=== PATIENT | male | born 1985 | race Caucasian/White ===

== ENCOUNTER 2017-07-06 19:26 | Inpatient (IN) | payer OTHER ==
--- NOTE | 2017-07-06 20:15 | ER Document Report ---
ED Medical Screen (RME) - General Chief Complaint: Abdominal Pain Stated Complaint: VOMITING AND ABDOMINAL PAIN Time Seen by Provider: 07/06/17 20:14 TRAVEL OUTSIDE OF THE [place] IN LAST 30 DAYS: No - HPI Notes: 07/06/17 20:15 Patient just discharged for SBO. Patient states vomited not passing any gas - Related Data Allergies/Adverse Reactions: No Known Allergies Allergy (Verified 07/06/17 19:26) Past Medical History Renal/ Medical History: Denies: Hx Peritoneal Dialysis Musculoskeltal Medical History: Reports Hx Musculoskeletal Trauma Psychiatric Medical History: Reports: Hx Bipolar Disorder, Hx Depression Traumatic Medical History: Reports: Hx Fractures - foot, Past Surgical History: Reports: Hx Cholecystectomy - Immunizations Immunizations up to date: Yes Hx Diphtheria, Pertussis, Tetanus Vaccination: Yes - 2010 History of Influenza Vaccine for 01/2017 - 06/2017 Season: Refused Review of Systems - Review of Systems Gastrointestinal: Nausea, Vomiting -: Yes All other systems reviewed and negative Physical Exam - Vital signs Vitals: Temp Pulse Resp BP Pulse Ox 98.2 F 100 17 127/80 H 98 07/06/17 19:30 07/06/17 19:30 07/06/17 19:30 07/06/17 19:30 07/06/17 19:30 - Abdominal Distension: No distension Tenderness: Nontender Course - Vital Signs Vital signs: Temp Pulse Resp BP Pulse Ox 98.2 F 100 17 127/80 H 98 07/06/17 19:30 07/06/17 19:30 07/06/17 19:30 07/06/17 19:30 07/06/17 19:30
--- NOTE | 2017-07-06 20:47 | RADIOLOGY REPORT (SQ) ---
EXAM DESCRIPTION: ACUTE ABDOMEN SERIES COMPLETED DATE/TIME: 07/06/2017 8:36 pm REASON FOR STUDY: eval sbo COMPARISON: 07/04/2017 and 07/03/2017 NUMBER OF VIEWS: Three views. TECHNIQUE: Frontal chest, supine abdomen and upright/decubitus abdomen radiographic images acquired. LIMITATIONS: None. FINDINGS: CHEST: Lungs clear of infiltrates. FREE AIR: None. No abnormal gas collections. BOWEL GAS PATTERN: Recurrence of multiple dilated loops of small bowel demonstrating air-fluid levels , similar to that seen on 07/03/2017 CT imaging. CALCIFICATIONS: No suspicious calcifications. HARDWARE: None in the abdomen. SOFT TISSUES: No gross mass or suggestion of organomegaly. BONES: No acute fracture. No worrisome bone lesions. OTHER: No other significant finding. IMPRESSION: Short interval recurrence of multiple dilated loops of small bowel demonstrating air-flu id levels. This is similar to that seen on comparison CT imaging performed 07/03/2017 which demonstra preethi congenital malrotation. Recommend surgical consultation. TECHNICAL DOCUMENTATION: JOB ID: [id number] [employer]- All Rights Reserved Reading location - IP/workstation name: [email or web address]
[2017-07-06] MEDS ORDERED: NORMAL SALINE 1000 ML 1,000 ML IV ONE (22:11)
[2017-07-06] MEDS ORDERED: ONDANSETRON HCL INJ/PF 4 MG/2 ML SDV IV ONE (22:15)
[2017-07-06] MEDS ORDERED: HYDROMORPHONE HCL INJ/PF 2 MG/ML AMPULE IV ONE (22:15)
[2017-07-06] MEDS ORDERED: FAMOTIDINE INJ/PF 20 MG/2 ML SDV IV ONE (22:15)
[2017-07-06] MEDS ORDERED: LIDOCAINE 2% JELLY 5 ML TUBE TOP ONE (22:15)
--- NOTE | 2017-07-06 22:22 | ER Document Report ---
ED General - General Chief Complaint: Abdominal Pain Stated Complaint: VOMITING AND ABDOMINAL PAIN Time Seen by Provider: 07/06/17 20:14 Mode of Arrival: Ambulatory Information source: Patient TRAVEL OUTSIDE OF THE [place] IN LAST 30 DAYS: No - HPI Notes: Patient is a 31-year-old male just discharged out of the hospital earlier this morning with a small bowel obstruction presents with report of nausea and vomiting 3 with no flatus and report of additional small bowel obstructive symptoms. The patient is status post open cholecystectomy 2012 with history of congenital malrotation and previous pancreatitis. He has not drank since he was discharged but had drank some alcohol prior to previous admission on . Patient had CT scan then that showed small bowel obstruction. Patient states he initially had been recommended for surgical intervention for exploratory laparotomy and lysis of adhesions, but cleared up and was discharged earlier this morning. Patient denies any fever or hematemesis or dysuria. The patient states he had one very small bowel movement earlier this morning. - Related Data Allergies/Adverse Reactions: No Known Allergies Allergy (Verified 07/06/17 19:26) Past Medical History - General Information source: Patient - Social History Smoking Status: Former Smoker Chew tobacco use (# tins/day): No Frequency of alcohol use: Occasional Drug Abuse: None Lives with: Family Family History: Arthritis, Hypertension. denies: CAD, CVA, DM, Hyperlipidemia, Malignancy, Thyroid Disfunction Patient has suicidal ideation: No Patient has homicidal ideation: No Renal/ Medical History: Denies: Hx Peritoneal Dialysis Musculoskeltal Medical History: Reports Hx Musculoskeletal Trauma Psychiatric Medical History: Reports: Hx Bipolar Disorder, Hx Depression Traumatic Medical History: Reports: Hx Fractures - foot, Past Surgical History: Reports: Hx Cholecystectomy - Immunizations Immunizations up to date: Yes Hx Diphtheria, Pertussis, Tetanus Vaccination: Yes - 2010 Review of Systems - Review of Systems Notes: REVIEW OF SYSTEMS: CONSTITUTIONAL : Denies fever, chills, or sweats. EENT: Denies eye, ear, throat, or mouth pain or symptoms. Denies nasal or sinus congestion or discharge. Denies throat, tongue, or mouth swelling or difficulty swallowing. CARDIOVASCULAR: Denies chest pain. Denies palpitations or racing or irregular heart beat. Denies ankle edema. RESPIRATORY: Denies cough, cold, or chest congestion. Denies shortness of breath, difficulty breathing, or wheezing. GASTROINTESTINAL: Denies diarrhea. Denies blood in vomitus, stools, or per rectum. Denies black, tarry stools. Denies constipation. GENITOURINARY: Denies difficulty urinating, painful urination, burning, frequency, blood in urine, or discharge. MUSCULOSKELETAL: Denies back or neck pain or stiffness. Denies joint pain or swelling. SKIN: Denies rash, lesions or sores. HEMATOLOGIC : Denies easy bruising or bleeding. LYMPHATIC: Denies swollen, enlarged glands. NEUROLOGICAL: Denies confusion or altered mental status. Denies passing out or loss of consciousness. Denies dizziness or lightheadedness. Denies headache. Denies weakness or paralysis or loss of use of either side. Denies problems with gait or speech. Denies sensory loss, numbness, or tingling. Denies seizures. PSYCHIATRIC: Denies anxiety or stress. Denies depression, suicidal ideation, or homicidal ideation. ALL OTHER SYSTEMS REVIEWED AND NEGATIVE. Dictation was performed using [employer] voice recognition software Physical Exam - Vital signs Vitals: Temp Pulse Resp BP Pulse Ox 98.2 F 100 17 127/80 H 98 07/06/17 19:30 07/06/17 19:30 07/06/17 19:30 07/06/17 19:30 07/06/17 19:30 - Notes Notes: PHYSICAL EXAMINATION: GENERAL: Well-appearing, well-nourished and in moderate discomfort. HEAD: Atraumatic, normocephalic. EYES: Pupils equal round and reactive to light, extraocular movements intact, sclera anicteric, conjunctiva are normal. ENT: Nares patent, oropharynx clear without exudates. Moist mucous membranes. NECK: Normal range of motion, supple without lymphadenopathy LUNGS: Breath sounds clear to auscultation bilaterally and equal. No wheezes rales or rhonchi. HEART: Regular rate and rhythm without murmurs ABDOMEN: diffusely tender worse through the upper abdomen with mildly distended abdomen. No guarding, no rebound. No masses appreciated. Minimal scant bowel sounds. Musculoskeletal: Normal range of motion, no pitting or edema. No cyanosis. No CVA discomfort. NEUROLOGICAL: Cranial nerves grossly intact. Normal speech, normal gait. Normal sensory, motor exams PSYCH: Normal mood, normal affect. SKIN: Warm, Dry, normal turgor, no rashes or lesions noted. Course - Re-evaluation Re-evalutation: 07/06/17 22:22 Acute abdominal series showed evidence for small bowel obstruction consistent with previous CT scan. Orders given for normal saline bolus Zofran and Dilaudid Pepcid and NG tube. 07/06/17 23:45 Patient had NG tube placed and position was slightly high as the NG tube appeared to be about 4-5 cm beyond the gastroesophageal juncture. Nursing staff is to advance the NG tube another 6 cm. Lab studies show no significant abnormality. Discussion was undertaken with surgery Dr. Mcelroy and he agreed to admit the patient for further evaluation and management and care. Patient is in agreement with admission for further management. Patient has been bolused with 1 L normal saline and maintenance fluids will be written. No evidence for pancreatitis, hepatitis, bowel perforation. Discussed with patient possibility of needing surgery, but this is his first episode of bowel obstruction starting 07/03/17. 07/06/17 23:55 - Vital Signs Vital signs: Temp Pulse Resp BP Pulse Ox 98.2 F 100 17 127/80 H 98 07/06/17 19:30 07/06/17 19:30 07/06/17 19:30 07/06/17 19:30 07/06/17 19:30 - Laboratory Result Diagrams: 07/06/17 22:50 07/06/17 22:50 Laboratory results interpreted by me: 07/06/17 07/06/17 22:50 22:50 WBC 12.0 H Absolute Neutrophils 9.0 H Carbon Dioxide 31 H Glucose 126 H Calcium 10.4 H Critical Care Note - Critical Care Note Total time excluding time spent on procedures (mins): 26 Discharge - Discharge Clinical Impression: SBO (small bowel obstruction) Abdominal pain Qualifiers: Abdominal location: generalized Qualified Code(s): R10.84 - Generalized abdominal pain Vomiting Qualifiers: Vomiting type: unspecified Vomiting Intractability: unspecified Nausea presence : with nausea Qualified Code(s): R11.2 - Nausea with vomiting, unspecified Condition: Stable Disposition: ADMITTED INPATIENT Admitting Provider: Surgicalist Unit Admitted: Surgical Floor - Tiff is she is is is is is is is is wheezing is is is is is is is
[2017-07-06] MEDS ORDERED: MORPHINE SULFATE 10 MG/ML INJ IV ONE ×2 (22:33→23:54)
[2017-07-06 23:02] LABS: ABSOLUTE EOSINOPHILS # (AUTO) 0.1 10^3/uL (0.0-0.6); ABSOLUTE MONOCYTES (AUTO) 0.8 10^3/uL (0.1-1.4); BASOPHILS % (AUTO) 0.2 % (0-2); HEMOGLOBIN 16.1 g/dL (13.5-17.0); MEAN CORPUSCULAR HEMOGLOBIN 32.5 pg (27.0-33.4); MEAN CORPUSCULAR HGB CONC 35.1 g/dL (32.0-36.0); MEAN CORPUSCULAR VOLUME 93 fl (80-97); MONOCYTES % (AUTO) 6.7 % (3-13); PLATELET COUNT 247 10^3/uL (150-450); RED BLOOD COUNT 4.96 10^6/uL (4.35-5.55); RED CELL DISTRIBUTION WIDTH 12.2 % (11.5-14.0); SEGMENTED NEUTROPHILS % (AUTO) 75.1 % (42-78); TOTAL CELLS COUNTED % (AUTO) 100 %
[2017-07-06 23:24] LABS: ALANINE AMINOTRANSFERASE 46 U/L (21-72); ALBUMIN 4.6 g/dL (3.5-5.0); ALKALINE PHOSPHATASE 91 U/L (38-126); ANION GAP 12 (5-19); ASPARTATE AMINO TRANSFERASE 32 U/L (17-59); BILIRUBIN,DIRECT 0.2 mg/dL (0.0-0.4); BILIRUBIN,TOTAL 0.9 mg/dL (0.2-1.3); BLOOD UREA NITROGEN 15 mg/dL (7-20); CALCIUM 10.4 mg/dL (8.4-10.2); CARBON DIOXIDE 31 mmol/L (22-30); CHLORIDE 99 mmol/L (98-107); GLUCOSE 126 mg/dL (75-110); LIPASE 56.4 U/L (23-300); POTASSIUM 3.9 mmol/L (3.6-5.0)
--- NOTE | 2017-07-06 23:47 | RADIOLOGY REPORT (SQ) ---
EXAM DESCRIPTION: KUB/ABDOMEN (SINGLE VIEW) COMPLETED DATE/TIME: 07/06/2017 11:29 pm REASON FOR STUDY: Post NG PLACEMENT COMPARISON: 07/06/2017 NUMBER OF VIEWS: One view. TECHNIQUE: Supine radiographic image of the abdomen acquired. LIMITATIONS: Limited field of view performed for the purposes of enteric tube placement evaluation. FINDINGS: BOWEL GAS PATTERN: Short interval stability, again demonstrating multiple prominent loops of small bowel. CALCIFICATIONS: No suspicious calcifications. SOFT TISSUES: No gross mass or suggestion of organomegaly. HARDWARE: Interval placement of an apparent enteric tube, with the proximal port project in the regio n of the gastroesophageal junction. BONES: No acute fracture. No worrisome bone lesions. OTHER: No other significant finding. IMPRESSION: 1. Interval placement of an enteric tube with the proximal port projecting at the level of the gastroesophageal junction. Recommend advancing 5 to 10 cm. 2. Multiple prominent loops of small bowel in this patient with known congenital malrotation. TECHNICAL DOCUMENTATION: JOB ID: [id number] [employer]- All Rights Reserved Reading location - IP/workstation name: [email or web address]
[2017-07-06] MEDS ORDERED: POTASSI CL 20 MEQ/D5-1/2NS 1L 1,000 ML IV ONE (23:52)
--- NOTE | 2017-07-07 00:35 | RADIOLOGY REPORT (SQ) ---
EXAM DESCRIPTION: KUB/ABDOMEN (SINGLE VIEW) CLINICAL HISTORY: ADVANCEMENT OF NG TUBE COMPARISON: 07/06/2017 FINDINGS: Single view of the abdomen. NG tube with tip overlying the stomach. Side-port is at the gastroesophageal junction. Recommend advancing 5-10 cm. Dilated loops of small bowel with air identified in the colon. No definite free edge peritoneal air. IMPRESSION: 1. NG tube with tip in the stomach. The side-port is at the level of the gastroesophageal junction. Recommend advancing digestion years.
--- NOTE | 2017-07-07 01:05 | PDOC H&P ---
History of Present Illness Admission Date/PCP: 07/07/17 00:28 Patient complains of: abdominal pains with N/V History of Present Illness: JANES AGUIRRE is a 31 year old male who was just discharged 07/06/17 for resolved Small bowel obstruction. Had breakfast regular food on the day of discharged. He then have reg food followed by abdominal pains with N/V then went back to ED. Obstruction series showed SBO Past Medical History Psychiatric Medical History: Reports: Bipolar Disorder, Depression Past Surgical History Past Surgical History: Reports: Cholecystectomy - open. Social History Lives with: Family Smoking Status: Former Smoker Frequency of Alcohol Use: None Hx Recreational Drug Use: No Drugs: None Hx Prescription Drug Abuse: No Family History Family History: Arthritis, Hypertension. denies: CAD, CVA, DM, Hyperlipidemia, Malignancy, Thyroid Disfunction Parental Family History Reviewed: Yes Children Family History Reviewed: No Sibling(s) Family History Reviewed.: No Medication/Allergy Home Medications: Lamotrigine [Lamictal] 200 mg PO QHS 07/03/17 Allergies/Adverse Reactions: No Known Allergies Allergy (Verified 07/06/17 19:26) Review of Systems Constitutional: PRESENT: other - no fever/chills Ears: PRESENT: other - no visual/hearing problems Cardiovascular: PRESENT: other - no chest pains/cough Respiratory: PRESENT: other Gastrointestinal: PRESENT: abdominal pain - primarily along the RUQ, nausea, vomiting Genitourinary: PRESENT: other Neurological: PRESENT: other - no seizures Physical Exam Vital Signs: Temp Pulse Resp BP Pulse Ox 98.2 F 100 17 127/80 H 98 07/06/17 19:30 07/06/17 19:30 07/06/17 19:30 07/06/17 19:30 07/06/17 19:30 General appearance: PRESENT: mild distress Head exam: PRESENT: atraumatic Eye exam: PRESENT: conjunctiva pink Respiratory exam: PRESENT: clear to auscultation mary Cardiovascular exam: PRESENT: RRR Pulses: PRESENT: normal carotid pulses, normal radial pulses, normal femoral pulses GI/Abdominal exam: PRESENT: tenderness - at the RUQ Rectal exam: PRESENT: deferred Extremities exam: PRESENT: full ROM Musculoskeletal exam: PRESENT: ambulatory Neurological exam: PRESENT: altered, oriented to person, oriented to time, oriented to situation Psychiatric exam: PRESENT: appropriate affect Skin exam: PRESENT: normal color, warm Results Impressions: KUB X-Ray 07/06/17 00:00 IMPRESSION: 1. NG tube with tip in the stomach. The side-port is at the level of the gastroesophageal junction. Recommend advancing digestion years. Acute Abdomen Series 07/06/17 20:14 IMPRESSION: Short interval recurrence of multiple dilated loops of small bowel demonstrating air-fluid levels. This is similar to that seen on comparison CT imaging performed 07/03/2017 which demonstrated congenital malrotation. Recommend surgical consultation. Assessment & Plan - Diagnosis (1) Abdominal pain Qualifiers: Abdominal location: generalized Qualified Code(s): R10.84 - Generalized abdominal pain Is this a current diagnosis for this admission?: Yes (2) SBO (small bowel obstruction) Is this a current diagnosis for this admission?: Yes (3) Vomiting Qualifiers: Vomiting type: unspecified Vomiting Intractability: unspecified Nausea presence: with nausea Qualified Code(s): R11.2 - Nausea with vomiting, unspecified Is this a current diagnosis for this admission?: Yes (4) Congenital malrotation Is this a current diagnosis for this admission?: Yes - Time Time Spent: 30 to 50 Minutes - Inpatient Certification Medical Necessity: Need For IV Fluids, Need for Pain Control, Need for Surgery - Plan Summary Plan Summary: NGT NPO Check labs Hydrate CT scan in am with po contrast
[2017-07-07] MEDS ORDERED: MORPHINE SULFATE 10 MG/ML INJ IV ONE (02:36)
[2017-07-07] MEDS ORDERED: ONDANSETRON HCL INJ/PF 4 MG/2 ML SDV IV PRN (03:39)
[2017-07-07 04:36] LABS: ABSOLUTE EOSINOPHILS # (AUTO) 0.2 10^3/uL (0.0-0.6); ABSOLUTE NEUT (AUTO) 6.4 10^3/uL (1.7-8.2); BASOPHILS % (AUTO) 0.4 % (0-2); HEMOGLOBIN 14.7 g/dL (13.5-17.0); LYMPHOCYTES % (AUTO) 28.3 % (13-45); MEAN CORPUSCULAR HEMOGLOBIN 32.7 pg (27.0-33.4); MEAN CORPUSCULAR VOLUME 94 fl (80-97); MONOCYTES % (AUTO) 9.6 % (3-13); PLATELET COUNT 195 10^3/uL (150-450); RED BLOOD COUNT 4.49 10^6/uL (4.35-5.55); RED CELL DISTRIBUTION WIDTH 12.3 % (11.5-14.0); SEGMENTED NEUTROPHILS % (AUTO) 59.7 % (42-78); TOTAL CELLS COUNTED % (AUTO) 100 %; WHITE BLOOD COUNT 10.7 10^3/uL (4.0-10.5)
[2017-07-07 05:10] LABS: ANION GAP 10 (5-19); BLOOD UREA NITROGEN 13 mg/dL (7-20); CALCIUM 9.3 mg/dL (8.4-10.2); CARBON DIOXIDE 27 mmol/L (22-30); CHLORIDE 106 mmol/L (98-107); GLUCOSE 145 mg/dL (75-110); LIPASE 44.5 U/L (23-300); POTASSIUM 3.7 mmol/L (3.6-5.0); SODIUM 142.6 mmol/L (137-145)
[2017-07-07] MEDS: MORPHINE SULFATE 10 MG/ML INJ IV PRN ×2 (06:16→11:40)
[2017-07-07] MEDS: NORMAL SALINE 1000 ML 1,000 ML IV PRN ×2 (06:17→19:48)
--- NOTE | 2017-07-07 13:26 | RADIOLOGY REPORT (SQ) ---
EXAM DESCRIPTION: SMALL BOWEL SERIES COMPLETED DATE/TIME: 07/07/2017 12:12 pm REASON FOR STUDY: SBO COMPARISON: CT abdomen pelvis 06/27/2014, 07/03/2017 Abdominal films 07/03/2017, 07/04/2017, 07/06/2017, 07/07/2017 FLUOROSCOPY TIME: No fluoroscopy used. Serial films up to 3 hours, 8 digital radiographic images saved to PACS. LIMITATIONS: None. PROCEDURE: Initial assistant education director image of abdomen acquired, followed by administration of water-soluble oral contrast. Serial radiographic images acquired. Fluoroscopic images recorded of the terminal ileum and other indicated areas. All images stored on PACS. FINDINGS: Sleever film demonstrates persistent dilated small bowel loops in the right upper quadrant, and mid epigastrium. Colon decompressed. Calcifications along the leftward aspect of the L1 vertebr al body level within the pancreas, unchanged from prior CT exams Patient drank Gastrografin contrast. Contrast state in the stomach fundus for 3 hours. No appreciab le gastric emptying. This result was called to Dr. Mcelroy, who plans to take the patient to surgery. IMPRESSION: No gastric emptying. Persistent dilated right upper quadrant small bowel loops worrisom e for obstruction COMMENT: Quality ID [id number]: Final reports for procedures using fluoroscopy that document radiation exp osure indices, or exposure time and number of fluorographic images (if radiation exposure indices are not available) TECHNICAL DOCUMENTATION: JOB ID: [id number] [employer]- All Rights Reserved Reading location - IP/workstation name: [email or web address]
[2017-07-07] MEDS ORDERED: CEFAZOLIN SODIUM 2 GM in NORMAL SALINE 100 ML IV PRN (14:01)
[2017-07-07] MEDS ORDERED: CEFAZOLIN INJ 1 GM VIAL ONE (14:35)
[2017-07-07] MEDS ORDERED: MIDAZOLAM 2 MG/2 ML INJ ONE (14:52)
[2017-07-07] MEDS ORDERED: PROPOFOL INJ 200 MG/20 ML VIAL IV ONE (14:52)
[2017-07-07] MEDS ORDERED: FENTANYL CITRATE INJ/PF 100 MCG/2 ML AMPUL ONE (14:52)
[2017-07-07] MEDS ORDERED: ACETAMINOPHEN 100 ML IV ONE (14:52)
[2017-07-07] MEDS ORDERED: ONDANSETRON HCL INJ/PF 4 MG/2 ML SDV ONE (14:56)
[2017-07-07] MEDS ORDERED: NEOSTIGMINE METHYLSULFATE 10 MG/10 ML VIAL ONE (14:56)
[2017-07-07] MEDS ORDERED: SUCCINYLCHOLINE CHLORIDE INJ 200 MG/10 ML VIAL ONE (14:56)
[2017-07-07] MEDS ORDERED: LIDOCAINE 2% INJ-PF (20 MG/ML) 2 ML AMPUL ONE (14:56)
[2017-07-07] MEDS ORDERED: ROCURONIUM BROMIDE INJ 50 MG/5 ML VIAL IV ONE (14:56)
[2017-07-07] MEDS ORDERED: DEXAMETHASONE SOD PHOSPHATE INJ 4 MG/1 ML VIAL ONE (14:56)
[2017-07-07] MEDS ORDERED: GLYCOPYRROLATE INJ 0.4 MG/2 ML VIAL ONE (14:56)
[2017-07-07] MEDS ORDERED: BUPIVACAINE INJ/PF LIPOSOME/PF 266 MG/20 ML SDV ONE (15:02)
[2017-07-07] MEDS ORDERED: BUPIVACAINE HCL 0.25 % INJ/PF (2.5 MG/1 ML) 30 ML VIAL ONE (15:02)
[2017-07-07] MEDS ORDERED: DIPHENHYDRAMINE HCL 50 MG/ML VIAL IV PRN (16:21)
[2017-07-07] MEDS ORDERED: MEPERIDINE HCL/PF INJ 25 MG/1 ML DISP.SYRIN IV PRN (16:21)
[2017-07-07] MEDS ORDERED: FENTANYL CITRATE INJ/PF 100 MCG/2 ML AMPUL IV PRN ×3 (16:21)
[2017-07-07] MEDS ORDERED: PROMETHAZINE HCL INJ 25 MG/1 ML VIAL IV PRN (16:21)
[2017-07-07] MEDS ORDERED: LABETALOL HCL INJ 20 MG/4 ML DISP.SYRIN IV ONE (16:28)
[2017-07-07] MEDS: FENTANYL CITRATE INJ/PF 100 MCG/2 ML AMPUL ONE ×2 (18:35→18:40)
[2017-07-07] MEDS ORDERED: MORPHINE SULFATE 10 MG/ML INJ IV PRN ×2 (18:54→19:00)
--- NOTE | 2017-07-07 19:09 | OPERATIVE REPORT E ---
Operative Report NAME: JANSE AGUIRRE : 1985 AGE: 31Y DATE OF SURGERY: 07/07/2017 ROOM: 406 PREOPERATIVE DIAGNOSIS: SMALL BOWEL OBSTRUCTION, DUE TO ADHESIONS. POSTOPERATIVE DIAGNOSIS: SMALL BOWEL OBSTRUCTION, DUE TO ADHESIONS, WITH MALROTATION. OPERATIONS: 1. Exploratory laparotomy and lysis of adhesions. 2. Small bowel resection with primary anastomosis. 3. Appendectomy. SURGEON: DAVI PENG M.D. ANESTHESIA: General. INDICATION: This is a 31-year-old male who noted abdominal pain, nausea and vomiting, about 5 to 6 days ago. He was initially admitted and gradually improved. He was then discharged on 07/06/2017, after tolerating a full liquid diet, and had a soft diet on the morning of discharge. However, he came back later that day and had an obstruction series, which showed a small bowel obstruction. He had a small bowel series done this morning, which showed obstruction or nonprogression of dye through the stomach, and patient also complaining of more pain. Because of this, patient was then taken to the OR on an emergent basis. PROCEDURE: After adequate general anesthesia, patient was placed in the supine position and the abdomen prepped and draped in the usual sterile fashion. Appropriate timeout was called. Next, a midline incision made from the xiphoid going through the previous scar to just below the umbilicus. Abdominal cavity was then entered and there were a lot of adhesions noted. I had to go through the fascia and peritoneum gingerly to avoid any injury to the bowel. Exploration of the abdomen revealed dilated loops of small bowel and collapsed distal small bowel. There were a lot of adhesions around the area of the duodenum and the liver. These were then lysed sharply. Lysis of adhesions was carried out for at least 45 minutes. Following the lysis of adhesions, it was quite obvious the patient had a malrotation with the large intestine on the left side and small bowel primarily on the right side. On running the bowel, there was an area of marked stenosis with fibrotic site. This needed to be resected. This was then resected with use of BRAYAN and put back together in a functional cmax-it-rufp anastomosis using BRAYAN and TA-60. Three sutures of 3-0 silk were placed at the distal end of the staple line to prevent unraveling of the david. There was good opening between the 2 loops of bowel. Following this, the appendix, which was free-floating in the area of the left lower quadrant, was then pulled up over the incision and the mesoappendix subsequently serially clamped, cut and tied with 2-0 Vicryl. The patient's appendix was small, and it was crushed with a straight clamp and then ligated with 2-0 Vicryl. It was then divided sharply just above the ligature. The stump was then cauterized with the Bovie. Next, abdominal cavity was then irrigated with 3 to 4 liters of saline. There were actually a lot of adhesions. Some of them were likely from the congenital malrotation and some from the previous open cholecystectomy that patient had in 2012. Just prior to closure of the fascia, 2 pieces of Surgifilm were placed, primarily on the upper abdominal site to prevent hopefully reformation of the adhesions. Next, the fascia was then closed with #1 single strand PDS, starting at both ends and tying the 2 together around the area of the umbilicus. The subcutaneous was then irrigated and the skin subsequently closed with david. Sterile dressing was placed over the operative site. Needle, instrument and sponge counts were all correct. Estimated blood loss about 150 mL. Patient then brought to the recovery room in satisfactory condition. DICTATING PHYSICIAN: DAVI PENG M.D. [id number] PHY#: [id number] ID: [id number] JOB#: [id number] ACCT: [id number] cc:DAVI PENG M.D. > MTDD
[2017-07-07] MEDS: CEFAZOLIN 1 GM/D5W RTU 1 GM/50 ML RTUPB IV SCH (22:00)
[2017-07-08] MEDS: MORPHINE SULFATE 10 MG/ML INJ IV PRN ×3 (00:16→06:07)
[2017-07-08] MEDS: CEFAZOLIN 1 GM/D5W RTU 1 GM/50 ML RTUPB IV SCH ×2 (06:10→14:40)
[2017-07-08] MEDS ORDERED: KETOROLAC TROMETHAMINE INJ/PF 30 MG/1 ML SDV ONE (08:41)
[2017-07-08] MEDS: KETOROLAC TROMETHAMINE INJ/PF 30 MG/1 ML SDV IV PRN ×2 (09:00→17:27)
[2017-07-08] MEDS: NORMAL SALINE 1000 ML 1,000 ML IV PRN (09:01)
[2017-07-08] MEDS: PANTOPRAZOLE SODIUM 40 MG VIAL IV SCH (17:27)
--- NOTE | 2017-07-08 19:19 | PDOC PROGRESS REPORT ---
Subjective Progress Note for:: 07/08/17 Subjective:: incisional pains and gas pains Reason For Visit: SMALL BOWEL OBSTRUCTION Physical Exam Vital Signs: Temp Pulse Resp BP Pulse Ox 98.0 F 94 18 136/83 H 99 07/08/17 11:49 07/08/17 11:49 07/08/17 11:49 07/08/17 11:49 07/08/17 11:49 Intake & Output 07/07/17 07/08/17 07/09/17 06:59 06:59 06:59 Intake Total 0 6625 Output Total 0 5150 Balance 0 1475 Exam: Abdomen is soft and not distende. NGT drainage about 200ccs from this am. Results Laboratory Results: 07/07/17 04:08 07/07/17 04:08 Impressions: KUB X-Ray 07/06/17 00:00 IMPRESSION: 1. NG tube with tip in the stomach. The side-port is at the level of the gastroesophageal junction. Recommend advancing digestion years. Acute Abdomen Series 07/06/17 20:14 IMPRESSION: Short interval recurrence of multiple dilated loops of small bowel demonstrating air-fluid levels. This is similar to that seen on comparison CT imaging performed 07/03/2017 which demonstrated congenital malrotation. Recommend surgical consultation. Small Bowel X-Ray 07/07/17 00:00 IMPRESSION: No gastric emptying. Persistent dilated right upper quadrant small bowel loops worrisome for obstruction Assessment & Plan - Diagnosis (1) Abdominal pain Qualifiers: Abdominal location: generalized Qualified Code(s): R10.84 - Generalized abdominal pain Is this a current diagnosis for this admission?: Yes (2) SBO (small bowel obstruction) Is this a current diagnosis for this admission?: Yes (3) Vomiting Qualifiers: Vomiting type: unspecified Vomiting Intractability: unspecified Nausea presence: with nausea Qualified Code(s): R11.2 - Nausea with vomiting, unspecified Is this a current diagnosis for this admission?: Yes (4) Congenital malrotation Is this a current diagnosis for this admission?: Yes - Time Time Spent with patient: 15-24 minutes - Inpatient Certification Medical Necessity: Need For IV Fluids, Need for Pain Control - Plan Summary Plan Summary: Continue NGT Hydrate Pain mx with Toradol.Feels light headed with Morphine Keep mc until tomorrow. Not able to get out of bed easily. Start Lovenox and Protonix
[2017-07-09] MEDS: KETOROLAC TROMETHAMINE INJ/PF 30 MG/1 ML SDV IV PRN (02:01)
--- NOTE | 2017-07-09 09:55 | PDOC PROGRESS REPORT ---
Subjective Progress Note for:: 07/09/17 Reason For Visit: SMALL BOWEL OBSTRUCTION Patient is postoperative day 2 status post exploratory laparotomy, small bowel resection. He is doing well, getting up with minimal assistance. Huynh catheter and nasogastric tube still in; nasogastric tube draining significantly and successfully. Physical Exam Vital Signs: Temp Pulse Resp BP Pulse Ox 99.1 F 101 H 16 150/93 H 97 07/09/17 07:20 07/09/17 07:20 07/09/17 07:20 07/09/17 07:20 07/09/17 07:20 Intake & Output 07/08/17 07/09/17 07/10/17 06:59 06:59 06:59 Intake Total 6625 2625 Output Total 5150 1400 700 Balance 1475 1225 -700 General appearance: PRESENT: no acute distress GI/Abdominal exam: PRESENT: other - Abdomen soft dressing intact, some staining. Gastric tube putting out typical small bowel succus; Results Laboratory Results: 07/07/17 04:08 07/07/17 04:08 Impressions: KUB X-Ray 07/06/17 00:00 IMPRESSION: 1. NG tube with tip in the stomach. The side-port is at the level of the gastroesophageal junction. Recommend advancing digestion years. Acute Abdomen Series 07/06/17 20:14 IMPRESSION: Short interval recurrence of multiple dilated loops of small bowel demonstrating air-fluid levels. This is similar to that seen on comparison CT imaging performed 07/03/2017 which demonstrated congenital malrotation. Recommend surgical consultation. Small Bowel X-Ray 07/07/17 00:00 IMPRESSION: No gastric emptying. Persistent dilated right upper quadrant small bowel loops worrisome for obstruction Assessment & Plan - Diagnosis (1) SBO (small bowel obstruction) Is this a current diagnosis for this admission?: Yes Plan: Operative day 2 status post exploratory laparotomy, open, lysis of adhesions, extensive, small bowel resection. Uneventful postoperative course thus far, with appropriate nasogastric tube drainage inadequate pain control with Toradol Recommendations: 1. We will order Toradol to be scheduled around the clock. 2. We will discontinue Huynh catheter; provide incentive spirometer; order SMA- 7 to check potassium. 3. We will get patient out of bed, shower. Continue nasogastric drainage.
[2017-07-09] MEDS: NORMAL SALINE 1000 ML 1,000 ML IV PRN ×2 (10:10→17:33)
[2017-07-09] MEDS: KETOROLAC TROMETHAMINE INJ/PF 30 MG/1 ML SDV IV SCH ×2 (10:10→17:34)
[2017-07-09 11:58] LABS: ANION GAP 12 (5-19); BLOOD UREA NITROGEN 14 mg/dL (7-20); CALCIUM 9.2 mg/dL (8.4-10.2); CARBON DIOXIDE 25 mmol/L (22-30); CHLORIDE 104 mmol/L (98-107); GLUCOSE 105 mg/dL (75-110); POTASSIUM 3.7 mmol/L (3.6-5.0); SODIUM 141.2 mmol/L (137-145)
[2017-07-09] MEDS: PANTOPRAZOLE SODIUM 40 MG VIAL IV SCH (17:33)
[2017-07-10] MEDS: KETOROLAC TROMETHAMINE INJ/PF 30 MG/1 ML SDV IV SCH ×4 (00:07→17:35)
[2017-07-10] MEDS: NORMAL SALINE 1000 ML 1,000 ML IV PRN ×2 (12:15→17:36)
[2017-07-10] MEDS: PANTOPRAZOLE SODIUM 40 MG VIAL IV SCH (17:35)
--- NOTE | 2017-07-10 19:22 | PDOC PROGRESS REPORT ---
Subjective Progress Note for:: 07/10/17 Subjective:: Had BM Less abdominal pains Reason For Visit: SMALL BOWEL OBSTRUCTION Physical Exam Vital Signs: Temp Pulse Resp BP Pulse Ox 98.0 F 86 16 150/98 H 100 07/10/17 15:55 07/10/17 15:55 07/10/17 15:55 07/10/17 15:55 07/10/17 15:55 Intake & Output 07/09/17 07/10/17 07/11/17 06:59 06:59 06:59 Intake Total 2625 2100 900 Output Total 1400 2800 1000 Balance 1225 -700 -100 Exam: NGT draind 800 ccs from last night GI/Abdominal exam: PRESENT: soft, tenderness - mild tenderness along incision site. Wears a binder. Able to get out of bed. Off mc. Results Laboratory Results: 07/07/17 04:08 07/09/17 11:12 Impressions: KUB X-Ray 07/06/17 00:00 IMPRESSION: 1. NG tube with tip in the stomach. The side-port is at the level of the gastroesophageal junction. Recommend advancing digestion years. Acute Abdomen Series 07/06/17 20:14 IMPRESSION: Short interval recurrence of multiple dilated loops of small bowel demonstrating air-fluid levels. This is similar to that seen on comparison CT imaging performed 07/03/2017 which demonstrated congenital malrotation. Recommend surgical consultation. Small Bowel X-Ray 07/07/17 00:00 IMPRESSION: No gastric emptying. Persistent dilated right upper quadrant small bowel loops worrisome for obstruction Assessment & Plan - Diagnosis (1) Abdominal pain Qualifiers: Abdominal location: generalized Qualified Code(s): R10.84 - Generalized abdominal pain Is this a current diagnosis for this admission?: Yes (2) SBO (small bowel obstruction) Is this a current diagnosis for this admission?: Yes (3) Vomiting Qualifiers: Vomiting type: unspecified Vomiting Intractability: unspecified Nausea presence: with nausea Qualified Code(s): R11.2 - Nausea with vomiting, unspecified Is this a current diagnosis for this admission?: Yes (4) Congenital malrotation Is this a current diagnosis for this admission?: Yes - Time Time Spent with patient: 15-24 minutes - Plan Summary Plan Summary: Clamp NGT x8 hrs then rehook to suction.If drainage <200 ccs then D/C. Continue hydration
[2017-07-11] MEDS: KETOROLAC TROMETHAMINE INJ/PF 30 MG/1 ML SDV IV SCH ×2 (00:08→07:38)
[2017-07-11] MEDS ORDERED: KETOROLAC TROMETHAMINE INJ/PF 30 MG/1 ML SDV IV SCH (09:00)
[2017-07-11 14:20] VITALS: BP 147/93
--- NOTE | 2017-08-31 07:55 | DISCHARGE SUMMARY E ---
Discharge Summary NAME: JANES AGUIRRE : 1985 AGE: 31Y ADMITTED: 07/07/2017 DISCHARGED: 07/11/2017 FINAL DIAGNOSIS: Small-bowel obstruction due to adhesions and malrotation. PROCEDURE DONE: 07/07/17: Exploratory laparotomy, lysis of adhesions, and appendectomy. HOSPITAL COURSE: The patient has been complaining of abdominal pains with nausea and subsequently admitted on 07/07/17 for a small-bowel obstruction. He was urgently taken to the OR, where findings showed a small-bowel obstruction due to adhesions and from malrotation. Adhesions were lysed and an incidental appendectomy was performed. Postoperatively, the patient did well and discharged improved on 07/11/17. PLAN: The patient to be followed up in the surgical clinic in about a week. He was given a prescription for Percocet p.r.n. for pain. The patient advised not to do any lifting within 10 pounds for the next 2 weeks. The patient was discharged improved with above final diagnosis. DICTATING PHYSICIAN: DAVI PENG M.D. [id number] PHY#: [id number] ID: [id number] JOB#: [id number] ACCT: [id number] cc:DAVI PENG M.D. >
== END 2017-07-11 15:47 | disposition home or self-care (01) | DRG 330 ==
LOC: ER 19:26 → EH 07-07 00:28 → 4N 07-07 02:56
PROVIDERS: ADMIT Surgery; ATTEND Surgery
PROC: 0D9670Z Drainage of Stomach with Drainage Device, Via Natural or Artificial Opening (ICD-10-PCS; 2017-07-06)
PROC: 0DNG0ZZ Release Left Large Intestine, Open Approach (ICD-10-PCS; 2017-07-07)
PROC: 0DTJ0ZZ Resection of Appendix, Open Approach (ICD-10-PCS; 2017-07-07)
PROC: 0DB80ZZ Excision of Small Intestine, Open Approach (ICD-10-PCS; principal; 2017-07-07 15:00)
DX: K56.50 Intestinal adhesions [bands], unspecified as to partial versus complete obstruction (principal); Q43.3 Congenital malformations of intestinal fixation; F31.9 Bipolar disorder, unspecified; K66.0 Peritoneal adhesions (postprocedural) (postinfection); Z90.49 Acquired absence of other specified parts of digestive tract; Z87.891 Personal history of nicotine dependence; Z82.61 Family history of arthritis; Z82.49 Family history of ischemic heart disease and other diseases of the circulatory system
CPT/HCPCS: 36415; 74018; 74022; 74250; 790; 80048; 80053; 83690; 85025; 88304; 88307; 94799; 96361; 96365; 96375; 96376; 99285; C9290; J0131; J0330; J0690; J1100; J1885; J2250; J2270; J2405; J2704; J3010; J3480; J3490; J7030; S0028; S0164

== ENCOUNTER 2018-10-19 17:33 | Emergency (ER) | payer OTHER ==
[2018-10-19] MEDS ORDERED: NORMAL SALINE 1000 ML 1,000 ML IV ONE ×2 (18:11→19:26)
--- NOTE | 2018-10-19 18:13 | ER Document Report ---
ED Medical Screen (RME) - General Chief Complaint: High Blood Sugar Stated Complaint: BLOOD SUGAR ISSUE Time Seen by Provider: 10/19/18 18:03 Mode of Arrival: Ambulatory Information source: Patient Notes: Patient presents with elevated blood sugar at home. Patient states that he had a blood sugar of 742 yesterday. Patient was placed on glipizide and metformin and finally started taking that today. Patient has been taking Seroquel for the past 2 months and his primary doctor suspects that he may be having elevated blood sugar due to the Seroquel. Patient complains of feeling tired thirsty and having a 40 pound weight loss over the past 2 months. Patient denies any abdominal pain nausea or vomiting. hx: Chronic pancreatitis, pancreatic pseudocyst, cholecystectomy, bowel resection I have greeted and performed a rapid initial assessment of this patient. A comprehensive ED assessment and evaluation of the patient, analysis of test results and completion of the medical decision making process will be conducted by additional ED providers. TRAVEL OUTSIDE OF THE [place] IN LAST 30 DAYS: No - Related Data Allergies/Adverse Reactions: No Known Allergies Allergy (Verified 10/19/18 17:35) Past Medical History - Social History Frequency of alcohol use: Occasional Drug Abuse: None Endocrine Medical History: Reports: Hx Diabetes Mellitus Type 2 Renal/ Medical History: Denies: Hx Peritoneal Dialysis Musculoskeltal Medical History: Reports Hx Musculoskeletal Trauma Psychiatric Medical History: Reports: Hx Bipolar Disorder, Hx Depression Traumatic Medical History: Reports: Hx Fractures - foot, Past Surgical History: Reports: Hx Abdominal Surgery - bowel resection, Hx Cholecystectomy - open. - Immunizations Immunizations up to date: Yes Hx Diphtheria, Pertussis, Tetanus Vaccination: Yes - 2010 History of Influenza Vaccine for 01/2017 - 06/2017 Season: Refused Physical Exam - Vital signs Vitals: Temp Pulse Resp BP Pulse Ox 97.7 F 110 H 16 128/89 H 97 10/19/18 17:41 10/19/18 17:41 10/19/18 17:41 10/19/18 17:41 10/19/18 17:41 - Cardiovascular Rhythm: Tachycardia Heart sounds: S1 appreciated, S2 appreciated Murmur: No Course - Vital Signs Vital signs: Temp Pulse Resp BP Pulse Ox 97.7 F 110 H 16 128/89 H 97 10/19/18 17:41 10/19/18 17:41 10/19/18 17:41 10/19/18 17:41 10/19/18 17:41
[2018-10-19 18:50] LABS: VENOUS BLOOD BASE EXCESS -1.6 mmol/L; VENOUS BLOOD HCO3 22.8 mmol/L (20-32); VENOUS BLOOD PCO2 38.1 mmHg (35-63); VENOUS BLOOD PH 7.4 (7.30-7.42)
[2018-10-19 18:56] LABS: ABSOLUTE BASOPHILS # (AUTO) 0.1 10^3/uL (0.0-0.2); ABSOLUTE EOSINOPHILS # (AUTO) 0.1 10^3/uL (0.0-0.6); ABSOLUTE LYMPHOCYTES (AUTO) 2.6 10^3/uL (0.5-4.7); ABSOLUTE MONOCYTES (AUTO) 0.6 10^3/uL (0.1-1.4); ABSOLUTE NEUT (AUTO) 6.4 10^3/uL (1.7-8.2); BASOPHILS % (AUTO) 0.5 % (0-2); EOSINOPHILS % (AUTO) 0.7 % (0-6); HEMATOCRIT 44.9 % (37.9-51.0); HEMOGLOBIN 16.1 g/dL (13.5-17.0); LYMPHOCYTES % (AUTO) 27.1 % (13-45); MEAN CORPUSCULAR HEMOGLOBIN 33.3 pg (27.0-33.4); MEAN CORPUSCULAR VOLUME 93 fl (80-97); MONOCYTES % (AUTO) 6.1 % (3-13); PLATELET COUNT 221 10^3/uL (150-450); RED BLOOD COUNT 4.84 10^6/uL (4.35-5.55); RED CELL DISTRIBUTION WIDTH 12.5 % (11.5-14.0); SEGMENTED NEUTROPHILS % (AUTO) 65.6 % (42-78); TOTAL CELLS COUNTED % (AUTO) 100 %; WHITE BLOOD COUNT 9.7 10^3/uL (4.0-10.5)
[2018-10-19 19:11] LABS: ALANINE AMINOTRANSFERASE 33 U/L (21-72); ALBUMIN 4.3 g/dL (3.5-5.0); ALKALINE PHOSPHATASE 176 U/L (38-126); ANION GAP 15 (5-19); ASPARTATE AMINO TRANSFERASE 22 U/L (17-59); BILIRUBIN,DIRECT 0.3 mg/dL (0.0-0.4); BILIRUBIN,TOTAL 0.5 mg/dL (0.2-1.3); BLOOD UREA NITROGEN 16 mg/dL (7-20); CALCIUM 9.9 mg/dL (8.4-10.2); CARBON DIOXIDE 19 mmol/L (22-30); CHLORIDE 96 mmol/L (98-107); LIPASE 166.2 U/L (23-300); POTASSIUM 4.4 mmol/L (3.6-5.0); SODIUM 130.3 mmol/L (137-145); TOTAL PROTEIN 6.9 g/dL (6.3-8.2)
[2018-10-19 19:27] LABS: GLUCOSE 494 mg/dL (75-110)
[2018-10-19 22:34] LABS: APPEARANCE,URINE CLEAR; BILIRUBIN,URINE NEGATIVE (NEGATIVE); COLOR,URINE STRAW; GLUCOSE, URINE >=500 mg/dL (NEGATIVE); KETONES,URINE 20 mg/dL (NEGATIVE); LEUKOCYTE ESTERASE,URINE NEGATIVE (NEGATIVE); NITRITE,URINE NEGATIVE (NEGATIVE); PROTEIN,URINE NEGATIVE (NEGATIVE); UROBILINOGEN,URINE NEGATIVE mg/dL (<2.0)
[2018-10-19 22:40] LABS: ADD MANUAL MICROSCOPIC YES
[2018-10-19 22:41] LABS: HYALINE CASTS, URINE RARE /LPF
--- NOTE | 2018-10-19 23:01 | ER Document Report ---
ED General - General Chief Complaint: High Blood Sugar Stated Complaint: BLOOD SUGAR ISSUE Time Seen by Provider: 10/19/18 18:03 Primary Care Provider: [facility] [Primary Care Provider] - Follow up as needed Mode of Arrival: Ambulatory TRAVEL OUTSIDE OF THE [place] IN LAST 30 DAYS: No - HPI Notes: Patient is a 33-year-old male presents to the emergency department for evaluation of elevated blood glucose. The patient was started on Seroquel several months ago for his bipolar disorder. He states he really has seen little to no improvement in his bipolar disorder secondary to this medication. He was notified after some blood work that his blood sugar was over 700. He was diagnosed as a diabetic. He was started on metformin and glipizide. He just started those medications today. He has reached out an effort to find out if he should be continuing the Seroquel, has not gotten any clear answers. He denies any pain at this time. He states he has an intermittent vague abdominal pain, but not at this time. He rates that pain at a 2 out of 10 at its worst. He also notes that he is lost 40 pounds over the last several months. He complains of polyuria and polydipsia. - Related Data Allergies/Adverse Reactions: No Known Allergies Allergy (Verified 10/19/18 17:35) Past Medical History - General Information source: Patient - Social History Smoking Status: Current Every Day Smoker Frequency of alcohol use: Occasional Drug Abuse: None Family History: Arthritis, Other - Depression in mother. denies: CAD, CVA, DM, Hyperlipidemia, Malignancy, Thyroid Disfunction Patient has suicidal ideation: No Patient has homicidal ideation: No Endocrine Medical History: Reports: Hx Diabetes Mellitus Type 2 Renal/ Medical History: Denies: Hx Peritoneal Dialysis GI Medical History: Reports: Hx Pancreatitis Musculoskeletal Medical History: Reports Hx Musculoskeletal Trauma Psychiatric Medical History: Reports: Hx Bipolar Disorder, Hx Depression Traumatic Medical History: Reports: Hx Fractures - foot, Past Surgical History: Reports: Hx Abdominal Surgery - bowel resection, Hx Cholecystectomy - open. - Immunizations Immunizations up to date: Yes Hx Diphtheria, Pertussis, Tetanus Vaccination: Yes - 2010 Review of Systems - Review of Systems Constitutional: See HPI EENT: No symptoms reported Cardiovascular: No symptoms reported Respiratory: No symptoms reported Gastrointestinal: See HPI Genitourinary: See HPI Musculoskeletal: No symptoms reported Skin: No symptoms reported Neurological/Psychological: No symptoms reported Physical Exam - Vital signs Vitals: Temp Pulse Resp BP Pulse Ox 97.7 F 110 H 16 128/89 H 97 10/19/18 17:41 10/19/18 17:41 10/19/18 17:41 10/19/18 17:41 10/19/18 17:41 - Notes Notes: Vital signs reviewed, please refer to chart. Head is normocephalic, atraumatic. Pupils equal round, reactive to light. Neck is supple without meningismus. Heart is regular rate and rhythm. Lungs are clear to auscultation bilaterally. Abdomen is soft, nontender, normoactive bowel sounds throughout. He has a well-healed midline surgical scar on the abdomen without signs of dehiscence or infection. Extremities without cyanosis, clubbing. Posterior calves are nontender. Peripheral pulses are equal. Skin is warm and dry. Patient is awake, alert, neurological exam is nonfocal. Course - Re-evaluation Re-evalutation: 10/19/18 22:59 Patient presents to the emergency department for evaluation of hyperglycemia. On routine outpatient labs he had a blood sugar of over 700. He was given 2 L of normal saline. His blood work here showed a blood sugar of the 400s. His VBG is normal. He does not have an anion gap. He is not significantly de hydrated, only has a pseudohyponatremia secondary to the hyperglycemia. I believe it is possible that the Seroquel is the sole cause of this patient's hyperglycemia. The patient is told that he should wean off of this medication. He does have the ability to check his blood sugar at home. He is told to do so frequently, and take his diabetic medications at home as needed. He actually has an appointment with his primary care provider tomorrow morning at 10 AM. He is given instruction on diabetic dietary changes. He voiced understanding to those. Otherwise he is to wean down off of the Seroquel and discuss other options for treatment of his bipolar disorder. He is to return to the ED with worsening or new concerning symptoms of any sort. 10/19/18 22:59 - Vital Signs Vital signs: Temp Pulse Resp BP Pulse Ox 97.7 F 110 H 16 128/89 H 97 10/19/18 17:41 10/19/18 17:41 10/19/18 17:41 10/19/18 17:41 10/19/18 17:41 - Laboratory Result Diagrams: 10/19/18 18:30 10/19/18 18:30 Laboratory results interpreted by me: 10/19/18 10/19/18 10/19/18 18:30 18:30 21:25 Sodium 130.3 L Chloride 96 L Carbon Dioxide 19 L Glucose 494 H* Hemoglobin A1c % 13.2 H Alkaline Phosphatase 176 H Urine Glucose (UA) >=500 H Urine Ketones 20 H Discharge - Discharge Clinical Impression: Hyperglycemia Condition: Stable Disposition: HOME, SELF-CARE Instructions: Hyperglycemia ([facility]) Additional Instructions: Wean off of the Seroquel as discussed. Dietary changes to control blood sugar as discussed. Follow-up with your primary care provider tomorrow morning at 10 AM. Check your blood sugar frequently. If you develop worsening or new concerning symptoms of any sort, return immediately to the emergency department for reevaluation. Referrals: [facility] [Primary Care Provider] - Follow up as needed
[2018-10-19 23:48] VITALS: BP 135/95
--- NOTE | 2018-10-20 07:33 | EKG REPORT ---
SEVERITY:- NORMAL ECG - SINUS RHYTHM : Confirmed by: Jorge Lane MD 20-Oct-2018 07:33:18
== END 2018-10-19 23:34 | disposition home or self-care (01) ==
LOC: ER 17:33
DX: E11.65 Type 2 diabetes mellitus with hyperglycemia (principal); R63.4 Abnormal weight loss; R10.9 Unspecified abdominal pain; F31.9 Bipolar disorder, unspecified; Z79.899 Other long term (current) drug therapy; F17.200 Nicotine dependence, unspecified, uncomplicated
CPT/HCPCS: 93005; 99283; 96360; 36415; 82962; 83690; 85025; 80053; 81001; 83036; 82803; 93010; J7030